=== PATIENT | female | born 1950 | race Caucasian/White ===

== ENCOUNTER 2018-10-22 11:55 | Emergency (ER) | payer MEDICARE ==
[~2018-10-22] VITALS: Ht 167.6 cm; Wt 54.7 kg
[2018-10-22 12:01] VITALS: BP 151/91
[2018-10-22] MEDS ORDERED: HYDROcodone/APAP 5/325 TABLET ONE (12:24)
[2018-10-22] MEDS ORDERED: HYDROcodone/APAP 5/325 TABLET PO ONE (12:30)
--- NOTE | 2018-10-22 13:16 | NUR ---
Patient/Caregiver given discharge instructions and they have confirmed that they understand the instructions. Patient ambulatory with steady gait.
== END 2018-10-22 13:32 | disposition home or self-care (01) ==
LOC: ED 13:13
DX: G89.29 Other chronic pain (principal); M25.551 Pain in right hip; M79.651 Pain in right thigh
CPT/HCPCS: 72110; 72170; 99283

== ENCOUNTER 2018-10-28 09:22 | Emergency (ER) | payer MEDICARE ==
[~2018-10-28] VITALS: Ht 167.6 cm; Wt 55.5 kg
[2018-10-28 09:30] VITALS: BP 156/88
== END 2018-10-28 11:41 | disposition home or self-care (01) ==
LOC: ED 10:21
DX: M25.551 Pain in right hip (principal); G89.29 Other chronic pain
CPT/HCPCS: 96372; 99283; J1885

== ENCOUNTER 2019-08-29 15:15 | Inpatient (IN) | payer MEDICARE ==
[~2019-08-29] VITALS: Ht 175.3 cm; Wt 62.5 kg
[~2019-08-29 15:15] MED LIST: Abilify; GABAPENTIN PO; Norco; Paxil PO; levothyroxine sodium PO
--- NOTE | 2019-08-29 15:45 | NUR ---
TOMAS GONZALES AT BEDSIDE FOR EVAL AT THIS TIME. THIS IS A 69 YO FEMALE WHO PRESENTS TO THE ER C/O RIGHT HIP PAIN AFTER A MGLF ON WEDNESDAY. PT CAN BEAR WEIGHT AND MOVE LEG HOWEVER SHE REPORTS IT IS VERY PAINFUL AND HAS ISSUES WITH SENSATION D/T HX OF NEUROPATHY. 2+ PEDAL PULSE. PT AO X 4. SKIN PWD. RESP EVEN AND UNLABORED. CALL LIGHT WITHIN REACH. WILL CONT TO MONITOR PT.
[2019-08-29] MEDS ORDERED: HYDROcodone/APAP 5/325 TABLET ONE (15:51)
[2019-08-29] MEDS ORDERED: HYDROcodone/APAP 5/325 TABLET PO PRN (16:00)
--- NOTE | 2019-08-29 16:11 | NUR ---
PT MEDICATED ORDERED FOR 11/12 HIP PAIN. PT CURRENTLY IN IMAGING. REPORT TO STUART WHIPPLE WHO ASSUMED CARE OF PT.
[2019-08-29 16:50] LABS: BASOPHILS # (AUTO) 0.04 x10^3/uL (0-0.1); BASOPHILS % (AUTO) 1 % (0-1); EOSINOPHILS # (AUTO) 0.12 x10^3/uL (0-0.4); EOSINOPHILS % (AUTO) 2 % (1-7); LYMPHOCYTES # (AUTO) 1.85 x10^3/uL (1-3.4); LYMPHOCYTES % (AUTO) 28 % (22-44); MD NO; MEAN CORPUSCULAR HEMOGLOBIN 34.9 pg (27.0-34.8); MEAN CORPUSCULAR HGB CONC 34.3 g/dL (32.4-35.8); MEAN CORPUSCULAR VOLUME 101.6 fL (80-100); MEAN PLATELET VOLUME 9.4 fL (7.4-10.4); MONOCYTES # (AUTO) 0.56 x10^3/uL (0.2-0.8); MONOCYTES % (AUTO) 8 % (2-9); NEUTROPHILS # (AUTO) 4.13 x10^3/uL (1.8-6.8); NEUTROPHILS % (AUTO) 62 % (42-75); PLATELET COUNT 286 x10^3/uL (130-400); RED BLOOD COUNT 4.09 x10^6/uL (3.82-5.3); RED CELL DISTRIBUTION WIDTH 13.4 % (9.6-15.2)
[2019-08-29 16:57] LABS: INTERNATIONAL NORMALIZED RATIO 0.9 (0.93-1.1); PROTHROMBIN TIME 9.5 Seconds (9.6-11.5)
[2019-08-29 16:59] LABS: ALBUMIN 3.5 g/dL (3.4-5.0); ANION GAP 6 mmol/L (5-15); CALCIUM 8.9 mg/dL (8.5-10.1); CHLORIDE 110 mmol/L (98-107); CREATININE 0.58 mg/dL (0.55-1.02)
[2019-08-29] MEDS ORDERED: HYDROmorphone 1 MG/ML, 1ML INJ IV ONE (17:00)
[2019-08-29] MEDS ORDERED: SODIUM CHLORIDE FLUSH 10ML SYR IVF ONE (17:00)
[2019-08-29] MEDS: NS + 20MEQ KCL 1,000 ML IV SCH (17:20)
[2019-08-29] MEDS ORDERED: HYDROmorphone 2 MG/ML, 1ML ONE (17:27)
[2019-08-29] MEDS ORDERED: LIDODERM 5% PATCH TD PRN (17:30)
[2019-08-29] MEDS ORDERED: hydrALAzine 20 MG/ML, 1ML IVPush PRN (17:30)
[2019-08-29] MEDS ORDERED: ONDANSETRON 2MG/ML, 2ML IVPush PRN (17:30)
[2019-08-29] MEDS ORDERED: BISACODYL 10 MG SUPP PR PRN (17:30)
[2019-08-29] MEDS ORDERED: LABETALOL 5MG/ML, 20ML IVPush PRN (17:30)
[2019-08-29 18:00] LABS: FREE T4 (FREE THYROXINE) 1.48 ng/dL (0.76-1.46)
[2019-08-29 18:34] VITALS: BP 165/69
[2019-08-29 18:36] LABS: HCT (SEDRATE) 41.5 % (34.6-47.8)
[2019-08-29] MEDS ORDERED: PAROXETINE 10 MG TABLET PO SCH (21:00)
[2019-08-29] MEDS ORDERED: GABAPENTIN 300 MG CAPSULE PO SCH (21:00)
[2019-08-29] MEDS: LIDODERM REMOVE PATCH NOTE XX SCH (21:00)
[2019-08-29] MEDS: FAMOTIDINE 20 MG TABLET PO SCH (21:39)
[2019-08-29] MEDS: HEPARIN 5,000 UNITS/ML, 1ML SQ SCH (21:42)
[2019-08-29] MEDS: NICOTINE 21 MG/24 HR PATCH.TD24 TD SCH (21:42)
[2019-08-29] MEDS: OXYcodone IR 5MG TABLET PO PRN (21:43)
[2019-08-30 01:44] VITALS: BP 149/86
[2019-08-30] MEDS: OXYcodone IR 5MG TABLET PO PRN ×5 (01:48→21:01)
[2019-08-30] MEDS: NS + 20MEQ KCL 1,000 ML IV SCH ×2 (03:20→13:20)
[2019-08-30 05:29] LABS: BASOPHILS # (AUTO) 0.07 x10^3/uL (0-0.1); BASOPHILS % (AUTO) 1 % (0-1); EOSINOPHILS # (AUTO) 0.18 x10^3/uL (0-0.4); EOSINOPHILS % (AUTO) 3 % (1-7); LYMPHOCYTES # (AUTO) 2.66 x10^3/uL (1-3.4); LYMPHOCYTES % (AUTO) 43 % (22-44); MD NO; MEAN CORPUSCULAR HEMOGLOBIN 34.7 pg (27.0-34.8); MEAN CORPUSCULAR HGB CONC 33.5 g/dL (32.4-35.8); MEAN CORPUSCULAR VOLUME 103.5 fL (80-100); MEAN PLATELET VOLUME 9.6 fL (7.4-10.4); MONOCYTES # (AUTO) 0.58 x10^3/uL (0.2-0.8); MONOCYTES % (AUTO) 9 % (2-9); NEUTROPHILS # (AUTO) 2.71 x10^3/uL (1.8-6.8); NEUTROPHILS % (AUTO) 44 % (42-75); PLATELET COUNT 250 x10^3/uL (130-400); RED BLOOD COUNT 3.87 x10^6/uL (3.82-5.3); RED CELL DISTRIBUTION WIDTH 13.6 % (9.6-15.2)
[2019-08-30 05:38] LABS: ANION GAP 5 mmol/L (5-15); CALCIUM 8.4 mg/dL (8.5-10.1); CHLORIDE 113 mmol/L (98-107)
[2019-08-30 05:44] LABS: CHOL/HDL RATIO 4.3; CHOLESTEROL, TOTAL 200 mg/dL (140-239); CREATININE 0.51 mg/dL (0.55-1.02); HDL CHOL % 23 % (28-40); HDL CHOLESTEROL (DIRECT) 46 mg/dL (40-60); LDL CHOLESTEROL,CALCULATED 116 mg/dL (54-169); LDL/HDL RATIO 2.5 (0.5-3.0); TRIGLYCERIDES 192 mg/dL (50-200); VLDL CHOLESTEROL 38 mg/dL (0-25)
[2019-08-30] MEDS: HEPARIN 5,000 UNITS/ML, 1ML SQ SCH ×2 (05:57→17:04)
[2019-08-30] MEDS ORDERED: LEVOTHYROXINE 112 MCG TABLET PO SCH (06:00)
[2019-08-30 07:33] VITALS: BP 137/74
[2019-08-30] MEDS: FAMOTIDINE 20 MG TABLET PO SCH ×2 (08:25→20:25)
[2019-08-30 13:51] VITALS: BP 111/68
[2019-08-30] MEDS: NICOTINE 21 MG/24 HR PATCH.TD24 TD SCH (17:04)
[2019-08-30 19:37] VITALS: BP 136/83
[2019-08-30] MEDS: PAROXETINE 10 MG TABLET PO SCH (20:25)
[2019-08-30] MEDS: LIDODERM REMOVE PATCH NOTE XX SCH (20:25)
[2019-08-30] MEDS: GABAPENTIN 300 MG CAPSULE PO SCH (20:25)
[2019-08-31] MEDS: TRAZODONE 50MG TABLET PO PRN (00:01)
[2019-08-31] MEDS: NS + 20MEQ KCL 1,000 ML IV SCH ×2 (00:01→10:10)
[2019-08-31 00:57] VITALS: BP 129/79
[2019-08-31] MEDS: HEPARIN 5,000 UNITS/ML, 1ML SQ SCH ×3 (03:00→17:50)
[2019-08-31 04:43] LABS: BASOPHILS # (AUTO) 0.04 x10^3/uL (0-0.1); BASOPHILS % (AUTO) 1 % (0-1); EOSINOPHILS % (AUTO) 4 % (1-7); LYMPHOCYTES # (AUTO) 2.36 x10^3/uL (1-3.4); LYMPHOCYTES % (AUTO) 41 % (22-44); MD NO; MEAN CORPUSCULAR HEMOGLOBIN 34.2 pg (27.0-34.8); MEAN CORPUSCULAR HGB CONC 33.1 g/dL (32.4-35.8); MEAN CORPUSCULAR VOLUME 103.3 fL (80-100); MEAN PLATELET VOLUME 9.2 fL (7.4-10.4); MONOCYTES # (AUTO) 0.62 x10^3/uL (0.2-0.8); MONOCYTES % (AUTO) 11 % (2-9); NEUTROPHILS # (AUTO) 2.59 x10^3/uL (1.8-6.8); NEUTROPHILS % (AUTO) 45 % (42-75); PLATELET COUNT 253 x10^3/uL (130-400); RED BLOOD COUNT 4.12 x10^6/uL (3.82-5.3); RED CELL DISTRIBUTION WIDTH 13.7 % (9.6-15.2)
[2019-08-31 04:53] LABS: ANION GAP 6 mmol/L (5-15); CALCIUM 8.5 mg/dL (8.5-10.1); CHLORIDE 114 mmol/L (98-107); CREATININE 0.57 mg/dL (0.55-1.02)
[2019-08-31] MEDS: LEVOTHYROXINE 112 MCG TABLET PO SCH (05:54)
[2019-08-31] MEDS: OXYcodone IR 5MG TABLET PO PRN ×2 (05:54→10:09)
[2019-08-31 06:59] VITALS: BP 150/86
[2019-08-31 12:15] VITALS: BP 168/95
[2019-08-31] MEDS: morphine SULFATE 10 MG/ML, 1ML IVPush PRN ×4 (13:25→23:41)
[2019-08-31] MEDS ORDERED: hydrALAzine 20 MG/ML, 1ML IV PRN ×2 (16:00→18:00)
[2019-08-31] MEDS ORDERED: HALOPERIDOL 5 MG/ML IV PRN (16:00)
[2019-08-31] MEDS ORDERED: HYDROmorphone 1 MG/ML, 1ML INJ IVPush PRN (16:00)
[2019-08-31] MEDS ORDERED: LABETALOL 5MG/ML, 20ML IV PRN ×2 (16:00→18:00)
[2019-08-31] MEDS ORDERED: OXYcodone 5 MG/5 ML ORAL.SOL UDC PO PRN ×2 (16:00→18:00)
[2019-08-31] MEDS ORDERED: PROMETHAZINE 25 MG/ML, 1ML IVPush PRN ×2 (16:00→18:00)
[2019-08-31] MEDS ORDERED: MEPERIDINE/PF 25MG/0.5ML IVPush PRN ×2 (16:00→18:00)
[2019-08-31] MEDS ORDERED: FENTANYL PF 250 MCG/5ML ONE ×2 (16:58→17:53)
[2019-08-31] MEDS ORDERED: ONDANSETRON 2MG/ML, 2ML ONE ×2 (17:12)
[2019-08-31] MEDS ORDERED: MIDAZOLAM 1 MG/ML, 2ML ONE (17:12)
[2019-08-31] MEDS ORDERED: PROPOFOL 10 MG/ML, 20ML ONE (17:12)
[2019-08-31] MEDS ORDERED: CEFAZOLIN 1,000 MG ONE ×2 (17:12)
[2019-08-31] MEDS ORDERED: SUCCINYLCHOLINE 20 MG/ML, 10ML ONE (17:12)
[2019-08-31] MEDS ORDERED: SUGAMMADEX 200 MG/2 ML IVPush ONE (17:12)
[2019-08-31] MEDS ORDERED: ROCURONIUM 10MG/ML,5ML ONE (17:12)
[2019-08-31] MEDS ORDERED: DEXAMETHASONE 4 MG/ML, 1ML ONE ×2 (17:12→17:31)
[2019-08-31] MEDS ORDERED: PROMETHAZINE 12.5 MG SUPP PR PRN (18:00)
[2019-08-31] MEDS ORDERED: ONDANSETRON 2MG/ML, 2ML IVPush PRN (18:00)
[2019-08-31] MEDS ORDERED: DIPHENHYDRAMINE 50 MG/ML, 1ML IVPush PRN (18:00)
[2019-08-31] MEDS ORDERED: EPHEDRINE 50 MG/ML, 1ML IVPush PRN (18:00)
[2019-08-31] MEDS ORDERED: ALBUTEROL SULFATE 2.5 MG/3 ML NPPB PRN (18:00)
[2019-08-31] MEDS ORDERED: MIDAZOLAM 1 MG/ML, 2ML IV PRN (18:00)
[2019-08-31] MEDS ORDERED: FENTANYL PF 100 MCG/2ML IV PRN (18:00)
[2019-08-31] MEDS ORDERED: FENTANYL PF 100 MCG/2ML ONE ×2 (19:25→20:09)
[2019-08-31] MEDS ORDERED: HYDROmorphone 2 MG/ML, 1ML ONE (19:26)
[2019-08-31] MEDS ORDERED: OXYcodone 5 MG/5 ML ORAL.SOL UDC ONE (19:26)
[2019-08-31] MEDS: HYDROmorphone 1 MG/ML, 1ML INJ IVPush PRN ×4 (19:27→20:15)
[2019-08-31] MEDS: FENTANYL PF 100 MCG/2ML IV PRN ×4 (19:28→20:20)
[2019-08-31] MEDS ORDERED: DIAZEPAM 5 MG/ML, 2ML ONE (19:29)
[2019-08-31] MEDS: DIAZEPAM 5 MG/ML, 2ML IVPush PRN ×2 (19:35→20:18)
[2019-08-31] MEDS: LIDODERM REMOVE PATCH NOTE XX SCH (21:00)
[2019-08-31 22:33] VITALS: BP 113/66
[2019-08-31] MEDS: FAMOTIDINE 20 MG TABLET PO SCH (22:47)
[2019-08-31] MEDS: GABAPENTIN 300 MG CAPSULE PO SCH (22:47)
[2019-08-31] MEDS: NICOTINE 21 MG/24 HR PATCH.TD24 TD SCH (22:47)
[2019-08-31] MEDS: PAROXETINE 10 MG TABLET PO SCH (22:47)
[2019-09-01] VITALS (8 sets, daily range): BP systolic 89–141; BP diastolic 49–76
[2019-09-01] MEDS: OXYcodone IR 5MG TABLET PO PRN ×6 (00:16→21:47)
[2019-09-01] MEDS: TRAZODONE 50MG TABLET PO PRN ×2 (00:19→22:18)
[2019-09-01] MEDS: HEPARIN 5,000 UNITS/ML, 1ML SQ SCH ×3 (00:19→16:49)
[2019-09-01] MEDS: NS + 20MEQ KCL 1,000 ML IV SCH ×3 (01:22→21:00)
[2019-09-01] MEDS: CEFAZOLIN PMX 2GM/50ML 50 ML IVPB SCH ×2 (04:08→12:19)
[2019-09-01 05:31] LABS: ALBUMIN 2.8 g/dL (3.4-5.0); ANION GAP 7 mmol/L (5-15); CALCIUM 8.1 mg/dL (8.5-10.1); CHLORIDE 111 mmol/L (98-107); CREATININE 0.56 mg/dL (0.55-1.02)
[2019-09-01 05:35] LABS: BASOPHILS % (AUTO) 0 % (0-1); EOSINOPHILS % (AUTO) 0 % (1-7); LYMPHOCYTES # (AUTO) 0.52 x10^3/uL (1-3.4); LYMPHOCYTES % (AUTO) 5 % (22-44); MD NO; MEAN CORPUSCULAR HEMOGLOBIN 34.1 pg (27.0-34.8); MEAN CORPUSCULAR VOLUME 103.3 fL (80-100); MEAN PLATELET VOLUME 9.3 fL (7.4-10.4); MONOCYTES # (AUTO) 0.44 x10^3/uL (0.2-0.8); MONOCYTES % (AUTO) 4 % (2-9); NEUTROPHILS % (AUTO) 91 % (42-75); PLATELET COUNT 238 x10^3/uL (130-400); RED BLOOD COUNT 3.58 x10^6/uL (3.82-5.3); RED CELL DISTRIBUTION WIDTH 13.7 % (9.6-15.2)
[2019-09-01] MEDS: LEVOTHYROXINE 112 MCG TABLET PO SCH (05:49)
[2019-09-01] MEDS: POLYETHYLENE GLYCOL 17 GM PACKET PO PRN (09:26)
[2019-09-01] MEDS: morphine SULFATE 10 MG/ML, 1ML IVPush PRN (15:36)
[2019-09-01] MEDS: LIDODERM REMOVE PATCH NOTE XX SCH (21:00)
[2019-09-01] MEDS: PAROXETINE 10 MG TABLET PO SCH (21:46)
[2019-09-01] MEDS: FAMOTIDINE 20 MG TABLET PO SCH (21:46)
[2019-09-01] MEDS: NICOTINE 21 MG/24 HR PATCH.TD24 TD SCH (21:47)
[2019-09-01] MEDS: GABAPENTIN 300 MG CAPSULE PO SCH (21:47)
[2019-09-02] MEDS: HEPARIN 5,000 UNITS/ML, 1ML SQ SCH ×3 (02:06→16:19)
[2019-09-02] MEDS: OXYcodone IR 5MG TABLET PO PRN ×5 (02:07→19:57)
[2019-09-02 02:13] VITALS: BP 131/79
[2019-09-02] MEDS: LEVOTHYROXINE 112 MCG TABLET PO SCH (06:10)
[2019-09-02] MEDS: NS + 20MEQ KCL 1,000 ML IV SCH ×3 (07:00→22:18)
[2019-09-02 07:47] VITALS: BP 134/74
[2019-09-02] MEDS: POLYETHYLENE GLYCOL 17 GM PACKET PO PRN (08:35)
[2019-09-02 12:01] VITALS: BP 129/72
[2019-09-02 19:45] VITALS: BP 143/74
[2019-09-02] MEDS: LIDODERM REMOVE PATCH NOTE XX SCH (19:53)
[2019-09-02] MEDS: GABAPENTIN 300 MG CAPSULE PO SCH (19:57)
[2019-09-02] MEDS: NICOTINE 21 MG/24 HR PATCH.TD24 TD SCH (19:57)
[2019-09-02] MEDS: PAROXETINE 10 MG TABLET PO SCH (19:57)
[2019-09-02] MEDS: FAMOTIDINE 20 MG TABLET PO SCH (19:57)
[2019-09-02] MEDS: TRAZODONE 50MG TABLET PO PRN (22:15)
[2019-09-03] MEDS: HEPARIN 5,000 UNITS/ML, 1ML SQ SCH ×3 (00:14→17:25)
[2019-09-03] MEDS: OXYcodone IR 5MG TABLET PO PRN ×4 (00:14→20:21)
[2019-09-03 01:12] VITALS: BP 107/64
[2019-09-03 05:28] LABS: ANION GAP 7 mmol/L (5-15); CALCIUM 8.1 mg/dL (8.5-10.1); CHLORIDE 109 mmol/L (98-107); CREATININE 0.56 mg/dL (0.55-1.02)
[2019-09-03 05:33] LABS: BASOPHILS # (AUTO) 0.05 x10^3/uL (0-0.1); BASOPHILS % (AUTO) 1 % (0-1); EOSINOPHILS # (AUTO) 0.07 x10^3/uL (0-0.4); EOSINOPHILS % (AUTO) 1 % (1-7); LYMPHOCYTES # (AUTO) 1.97 x10^3/uL (1-3.4); LYMPHOCYTES % (AUTO) 28 % (22-44); MD NO; MEAN CORPUSCULAR HEMOGLOBIN 34.8 pg (27.0-34.8); MEAN CORPUSCULAR HGB CONC 33.7 g/dL (32.4-35.8); MEAN CORPUSCULAR VOLUME 103.3 fL (80-100); MEAN PLATELET VOLUME 9.6 fL (7.4-10.4); MONOCYTES # (AUTO) 0.85 x10^3/uL (0.2-0.8); MONOCYTES % (AUTO) 12 % (2-9); NEUTROPHILS # (AUTO) 4.11 x10^3/uL (1.8-6.8); NEUTROPHILS % (AUTO) 58 % (42-75); PLATELET COUNT 226 x10^3/uL (130-400); RED BLOOD COUNT 3.18 x10^6/uL (3.82-5.3); RED CELL DISTRIBUTION WIDTH 13.7 % (9.6-15.2)
[2019-09-03] MEDS: LEVOTHYROXINE 112 MCG TABLET PO SCH (05:39)
[2019-09-03 07:57] VITALS: BP 121/72
[2019-09-03] MEDS: NS + 20MEQ KCL 1,000 ML IV SCH ×2 (13:00→22:39)
[2019-09-03 14:18] VITALS: BP 110/6
[2019-09-03] MEDS: GABAPENTIN 300 MG CAPSULE PO SCH (20:22)
[2019-09-03] MEDS: FAMOTIDINE 20 MG TABLET PO SCH (20:22)
[2019-09-03] MEDS: TRAZODONE 50MG TABLET PO PRN (20:22)
[2019-09-03] MEDS: NICOTINE 21 MG/24 HR PATCH.TD24 TD SCH (20:22)
[2019-09-03] MEDS: PAROXETINE 10 MG TABLET PO SCH (20:22)
[2019-09-03] MEDS: LIDODERM REMOVE PATCH NOTE XX SCH (20:26)
[2019-09-03 20:34] VITALS: BP 123/73
[2019-09-04 00:52] VITALS: BP 117/64
[2019-09-04] MEDS: HEPARIN 5,000 UNITS/ML, 1ML SQ SCH ×2 (00:57→12:06)
[2019-09-04] MEDS: OXYcodone IR 5MG TABLET PO PRN ×2 (00:58→06:00)
[2019-09-04] MEDS: LEVOTHYROXINE 112 MCG TABLET PO SCH (05:59)
[2019-09-04 06:06] LABS: ANION GAP 6 mmol/L (5-15); CALCIUM 8.5 mg/dL (8.5-10.1); CHLORIDE 110 mmol/L (98-107)
[2019-09-04 06:07] LABS: CREATININE 0.48 mg/dL (0.55-1.02)
[2019-09-04 06:31] VITALS: BP 112/68
[2019-09-04] MEDS: NS + 20MEQ KCL 1,000 ML IV SCH (09:00)
[2019-09-04] MEDS: morphine SULFATE 10 MG/ML, 1ML IVPush PRN (09:31)
[2019-09-04 14:02] VITALS: BP 129/68
[2019-09-04] MEDS ORDERED: ASPI81TA45 PO (16:00)
[2019-09-04] MEDS ORDERED: FAMO20TA7 PO (16:01)
[2019-09-04 16:50] VITALS: BP 120/76
== END 2019-09-04 17:58 | disposition home health service (06) | DRG 481 ==
LOC: ED 15:54 → EDIP 17:06 → SUATTDRO 17:07 → 4NE 18:27
PROVIDERS: ADMIT Hospitalist; ATTEND Hospitalist
PROC: 0S993ZZ Drainage of Right Hip Joint, Percutaneous Approach (ICD-10-PCS; 2019-08-31)
PROC: 0QS604Z Reposition Right Upper Femur with Internal Fixation Device, Open Approach (ICD-10-PCS; principal; 2019-08-31 16:30)
DX: S72.351A Displaced comminuted fracture of shaft of right femur, initial encounter for closed fracture (principal); M97.01XA Periprosthetic fracture around internal prosthetic right hip joint, initial encounter; F32.9 Major depressive disorder, single episode, unspecified; G62.9 Polyneuropathy, unspecified; E03.9 Hypothyroidism, unspecified; I10 Essential (primary) hypertension; Z96.643 Presence of artificial hip joint, bilateral; W01.0XXA Fall on same level from slipping, tripping and stumbling without subsequent striking against object, initial encounter; F41.9 Anxiety disorder, unspecified; K21.9 Gastro-esophageal reflux disease without esophagitis; Y93.89 Activity, other specified; Y92.091 Bathroom in other non-institutional residence as the place of occurrence of the external cause; Y99.8 Other external cause status; Z79.899 Other long term (current) drug therapy
CPT/HCPCS: 36415; 71045; 76000; 80048; 80061; 82040; 84439; 84443; 85025; 85610; 85651; 87070; 87075; 87102; 87116; 87205; 87206; 93005; 96374; 96375; 99285; C1713; G0378; J0690; J1100; J1170; J1644; J2250; J2405; J2704; J3010; J3360; J3480; J0330; J2270